=== PATIENT | male | born 1960 | race Caucasian/White ===

== ENCOUNTER → 2025-03-28 | Outpatient (CLI) | payer OTHER, SELFPAY ==
[2025-03-28 14:59] LABS: Bacteria 0 SEEN /hpf (None Seen); Mucous, Urine 0 SEEN /hpf (<or=2+); White Blood Cells 0 SEEN /hpf (0-5)
[2025-03-28 15:34] LABS: Absolute Lymphocyte Count 1.52 X10^3/uL (0.83-4.51); Absolute Neutrophil Count 1.5 X10^3/uL (2.0-7.7); Basophil# 0.01 X10^3/uL; Basophil% 0.3 % (0-1); Eosinophil# 0.08 X10^3/uL; Eosinophils% 2.5 % (0-5); Hematocrit 40.1 % (40-54); Hemoglobin 13.7 g/dL (13.0-16.5); Lymphocyte # 1.52 X10^3/ul (0.83-4.51); Lymphocyte % 46.6 % (19-41); Mean Corp Hgb Conc 34.2 g/dL (32-36); Mean Corpuscular Hgb 32.9 pg (27.0-32.0); Mean Corpuscular Volume 96.4 fL (80-94); Mean Platelet Vol. 9.9 fl (6.2-12.0); Monocyte# 0.11 X10^3/uL; Monocyte% 3.4 % (0-10); NRBC Flagged by Analyzer 0 % (0-5); Neutrophil # 1.53 X10^3/uL (2.7-7.7); Neutrophil % 46.9 % (47-70); Platelet Count 163 K/mm3 (150-450); RBC Distribution Width CV 13.9 % (11.6-14.6); RBC Distribution Width SD 49.5 fl (35.1-43.9); Red Blood Count 4.16 M/mm3 (4.6-6.2); White Blood Count 3.3 K/mm3 (4.4-11.0)
[2025-03-28 16:09] LABS: Cholesterol 227 mg/dL (<=200); High Density Lipoprotein 35 mg/dL; Low Density Lipoprotein Calc. 95 mg/dL; PSA,Total - Annual Screen 2.48 ng/mL (0.02-4.00); Triglycerides 485 mg/dL; Very Low Density Lipoprotein 97 mg/dL (5-40); cholesterol:hdl ratio screen 6.54
[2025-03-28 16:16] LABS: ALB/GLOB Ratio 1.3 RATIO (0.9-2.4); AST(SGOT) 27 U/L (<=37); Alanine Aminotransfer ALT/SGPT 26 U/L (<=46); Albumin, Serum 4.2 g/dL (3.4-4.8); Alkaline Phosphatase 96 U/L (40-129); Anion Gap 12 (5-15); BUN 15 mg/dL (4-19); BUN/Creat Ratio 19.4 RATIO (10-20); Calcium,Total 9.2 mg/dL (7.6-11.0); Carbon Dioxide 21.6 mmol/L (21.0-32.0); Chloride 105 mmol/L (98-108); Creatinine, Serum 0.79 mg/dL (0.70-1.20); EST Glomerular Filtration Rate 100 (>60); Globulin 3.1 g/dL (2.2-4.2); Glucose 98 mg/dL (70-99); Potassium 4.3 mmol/L (3.3-5.1); Protein, Total 7.3 g/dL (5.9-8.4); Sodium Level 138 mmol/L (133-145); Total Bilirubin 0.36 mg/dL (0.00-1.30)
[2025-03-28 16:36] LABS: Color, Urine Yellow (Yellow); Glucose, Dipstick Normal (Normal); Ketone-Dipstick Negative (Negative); Leukocyte Esterase-Dipstick Negative /ul (Negative); Nitrite-Dipstick Negative (Negative); Occult Blood-Urine 25 /ul (Negative); Protein-Dipstick Negative (Negative); Specific Gravity, Urine 1.015 (1.002-1.030); Urine Bilirubin Dipstick Negative (Negative); Urine Clarity Clear (Clear); Urine Urobilinogen Normal (Normal)
[2025-03-28 16:47] LABS: Red Blood Cells-Urine 0-5 SEEN /hpf (0-5); Squamous Epithelial Cells - UA 0-5 SEEN /hpf (0-5)
[2025-03-29 14:45] LABS: Vitamin B12 403 pg/mL (180-914)
== END | disposition home or self-care (01) ==
LOC: BIMLAB 14:04
PROVIDERS: PCP Internal Medicine; Referring Provider Internal Medicine; Visit Provider Internal Medicine
DX: Z00.00 Encounter for general adult medical examination without abnormal findings (principal); D75.89 Other specified diseases of blood and blood-forming organs; N40.0 Benign prostatic hyperplasia without lower urinary tract symptoms
CPT/HCPCS: 36415; 80053; 80061; 81001; 82607; 82746; 84153; 85025; G0103

== ENCOUNTER 2025-05-31 08:25 | Day surgery (SDC) | payer OTHER, SELFPAY ==
[2025-05-31] VITALS (9 sets, daily range): BP systolic 120–181; BP diastolic 79–109; PULSE 62–71; RESP 16; TEMP 36.3–37.1; O2SAT 94–98; BMI 29.7
[2025-05-31] MEDS: Lactated Ringers 1,000 ML 15 ML IV (08:57)
--- NOTE | 2025-05-31 09:01 | PCM.HP.STD ---
HPI - General General Date of Admission: 05/31/25 Date of Service: 05/31/25 Chief Complaint: Screening colonoscopy HPI Narrative VIRAL RICH, is a 65 M who presents for screening colonoscopy. He has had Cologuard test done in the past but never had a colonoscopy. [facility] Medical History Wears glasses Anxiety Alcohol use Arthritis Back pain Injury of back Injury of head and neck Non-smoker CPAP (continuous positive airway pressure) dependence Sleep apnea History of edema History of Holter monitoring Hyperlipidemia Macrocytosis Elevated blood pressure reading without diagnosis of hypertension Impacted cerumen, left ear Encounter to establish care BPH (benign prostatic hyperplasia) Colon cancer screening Preventative health care Dislocation of shoulder, right, open Pneumonia Hearing problem Bone fracture Home Medications ?Medication ?Instructions ?Recorded ?Last Taken ?Type cyanocobalamin-liver extract tablet 3 tab PO DAILY 03/28/25 05/27/25 History multivit,Ca,min-iron 8 mg-folic 1 tab PO DAILY 03/28/25 05/27/25 History acid 200 mcg-lycopene 600 mcg tablet (Men's Daily Multivitamin) glucosamine 500 eh-diyxpiphr-hnc 3 tab PO DAILY 05/28/25 05/27/25 History no1 416.6 mg-C 20 zr-ulgg-bkcl tablet pygeum africanum 50 mg capsule 50 mg PO DAILY 05/28/25 Unknown History Allergy/AdvReac Type Severity Reaction Status Date / Time No Known Allergies Allergy Verified 05/31/25 08:44 Family History Uncle Colon cancer Father Pulmonary fibrosis Mother Schizophrenia Surgical History Hx of skin graft History of surgery on lower extremity History of ear surgery Social History adopted: No household members: spouse Smoking Status: Never smoker details: occasional couple times per week substance use type: does not use what type of physical activity do you participate in: walking seatbelt use: always do you feel safe at home: Yes ROS Constitutional Constitutional: Denies fatigue, fever(s), poor appetite, weight gain or weight loss Gastrointestinal Gastrointestinal: Denies belching, bloating, change in bowel habits, change in stool character, chewing difficulty, coffee ground emesis, constipation, cramping, diarrhea, dyspepsia, dysphagia, early satiety, excessive flatus, fecal incontinence, heartburn, hematemesis, hematochezia, hemorrhoids, loose stools, melena, nausea, odynophagia, rectal bleeding, tenesmus, vomiting or weight changes Vital Signs Vital Signs Vital Signs: 05/31/25 08:45 05/31/25 08:45 Temperature 97.4 F L Temperature Source Temporal Pulse Rate 71 Respiratory Rate 16 Respiratory Pattern Normal Blood Pressure 168/109 H Blood Pressure Mean 128 Blood Pressure Source Monitor Blood Pressure Position Semi-Fowlers Blood Pressure Location Left Arm Pulse Ox 98 Oxygen Delivery Method Room Air Weight Weight: 219 lb 5.759 oz Body Mass Index (BMI) 29.7 Physical Exam Const alert, oriented x3, no apparent distress and healthy appearing General Appearance: cooperative GI normal to inspection, nondistended, normoactive bowel sounds, soft to palpation, non-tender and non-distended Percussion: normal to percussion Rectal Exam: deferred Assessment & Plan Assessment/Plan (1) Colon cancer screening: PLAN: He was explained alternatives, benefits, risk including not withstanding bleeding, infection, sepsis, perforation, need for surgery . He will have an ASA of 3.
--- NOTE | 2025-05-31 09:13 | PCM.PRE.AN2 ---
ASA Classification* ASA Classification ASA Classification: 3 Assessment & Plan Anesthesia* Anesthesia Assessment Anesthesia Assessment: Discussed sedation and/or anesthesia options, risks, benefits, and alternatives with patient/parents/legal guardian/POA. Questions invited. The patient/parents/legal guardian/POA seems to understand and agrees to proceed with anesthesia plan. Reviewed the physical assessment, medical history, allergy history and patient home medications list prior to surgery/procedure/anesthetic and documented any changes. Performed airway and anesthesia risk assessments. Anesthesia Type Anesthesia Type: MAC History Source History Obtained from:: Patient and Chart Anesthesia Focused Assessment* Temperature: 97.4 F Pulse Rate: 71 Blood Pressure: 168/109 (Repeat blood pressure is 166/101.) Respiratory Rate: 16 Pulse Ox: 98 Oxygen Delivery Method: Room Air Airway Assessment Mouth opens: >3 cm Mallampati Score: I Teeth Condition: Caps/Crowns (Patient has 1 crown. It is tight.) Neck Range of motion (ROM): Full ROM Labs Anesthesia Preop lab: CBC WBC 3.3 K/mm3 (4.4-11.0) L 03/28/25 14:04 03/28/25 RBC 4.16 M/mm3 (4.6-6.2) L 03/28/25 14:04 03/28/25 Hgb 13.7 g/dL (13.0-16.5) 03/28/25 14:04 03/28/25 Hct 40.1 % (40-54) 03/28/25 14:04 03/28/25 Plt Count 163 K/mm3 (150-450) 03/28/25 14:04 03/28/25 CHEMISTRY Potassium 4.3 mmol/L (3.3-5.1) 03/28/25 14:04 03/28/25 Sodium 138 mmol/L (133-145) 03/28/25 14:04 03/28/25 BUN 15 mg/dL (4-19) 03/28/25 14:04 03/28/25 Creatinine 0.79 mg/dL (0.70-1.20) 03/28/25 14:04 03/28/25 Glucose 98 mg/dL (70-99) 03/28/25 14:04 03/28/25 COAG Pre-Assessment Diagnosis/Proposed Procedure Planned Operative Procedure(s): COLONOSCOPY-OA Anesthesia History Anesthesia History - track superintendent: Anesthesia History - track superintendent Hx Hospitalization No 05/28/25 13:37 Any Problems With Anesthesia No 05/28/25 13:37 Cholinesterase deficiency No 05/28/25 13:37 You/Your Family Experience No 05/28/25 13:37 fever (hyperthermia) with Relationship Recent Exposure to Contagious No 05/31/25 08:45 Disease Does patient have nerve No 05/28/25 13:37 stimulator Patient instructed to have device shut off --Does patient have Pacemaker No 05/31/25 08:45 or ICD? When Was Last Pacemaker Check QUESTION #4 FULL TEXT: You/Your Family Experience fever (hyperthermia) with Anesthesia Last Oral Intake Last Oral intake: Last Oral Intake NPO since 06:30 05/31/25 08:45 Meds taken in AM with sips of No 05/31/25 08:45 water? Meds patient instructed to take am of surgery Any additional information?: Yes NPO since: 06:30 (Patient had some Gatorade and black coffee at 6:30 AM.) Meds taken in AM with sips of water?: No PONV PONV - track superintendent: PONV - track superintendent Female No 05/28/25 13:37 HX of Motion Sickness No 05/28/25 13:37 HX of N/V After Surgery No 05/28/25 13:37 Non-Smoker Yes 05/28/25 13:37 Duration of Surgery greater No 05/28/25 13:37 than 60 minutes Number of Risk Factors 1 05/28/25 13:37 PONV Score Low Risk 05/28/25 13:37 Height & Weight Height & Weight: Anesthesia: Height & Weight Height 6 ft 05/31/25 08:45 Weight: 99.5 kg 05/31/25 08:45 Body Mass Index (BMI) 29.7 05/31/25 08:45 Respiratory Assessment Respiratory Assessment - track superintendent: Respiratory Tract Infection Hx - track superintendent Hx Respiratory Tract Infection No 05/28/25 13:37 STOP Sleep Apnea STOP Sleep Apnea - track superintendent: STOP Sleep Apnea - track superintendent Hx Hypertension No 05/28/25 13:37 Hx Sleep Apnea Yes: NON-COMPLIANT 05/28/25 13:37 CPAP No 05/28/25 13:37 BIPAP No 05/28/25 13:37 Do you snore loudly (louder than talking or can be heard Do you often feel tired/ fatigued/ sleepy during daytime? Has anyone observed you stop breathing during sleep? STOP Results Positive 05/28/25 13:37 QUESTION #5 FULL TEXT : Do you snore loudly (louder than talking or can be heard through closed doors)? 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 Specify any problems Hx of Preganancy in last 3 N/A 05/28/25 13:37 Months Nurse Filling Out Transfusion VCHRISTIN 05/28/25 13:37 & Questions: Date: 05/28/25 05/28/25 13:37 Time: 13:39 05/28/25 13:37 Patient unable to answer at this time (ie. confused, unrespo /Reproduction History /Reproductive History - track superintendent: /Reproductive Hx- track superintendent Hx Now Gestational Age (in weeks): EDC: Hx Hx Para Hx Section SAB Active Medications Active Medications: Current Medications Generic Name Dose Route Start Last Admin Trade Name Freq PRN Reason Stop Dose Admin Lactated Ringer's 1,000 mls @ 15 mls/hr 05/31/25 08:45 05/31/25 08:57 IV 15 mls/hr .Q48H TYLER Administration PFSH Medical History Wears glasses Anxiety Alcohol use Arthritis Back pain Injury of back Injury of head and neck Non-smoker CPAP (continuous positive airway pressure) dependence Sleep apnea History of edema History of Holter monitoring Hyperlipidemia Macrocytosis Elevated blood pressure reading without diagnosis of hypertension Impacted cerumen, left ear Encounter to establish care BPH (benign prostatic hyperplasia) Colon cancer screening Preventative health care Dislocation of shoulder, right, open Pneumonia Hearing problem Bone fracture Home Medications ?Medication ?Instructions ?Recorded ?Last Taken ?Type cyanocobalamin-liver extract tablet 3 tab PO DAILY 03/28/25 05/27/25 History multivit,Ca,min-iron 8 mg-folic 1 tab PO DAILY 03/28/25 05/27/25 History acid 200 mcg-lycopene 600 mcg tablet (Men's Daily Multivitamin) glucosamine 500 qs-eftetaibn-zhf 3 tab PO DAILY 05/28/25 05/27/25 History no1 416.6 mg-C 20 vh-lsym-brrp tablet pygeum africanum 50 mg capsule 50 mg PO DAILY 05/28/25 Unknown History Allergy/AdvReac Type Severity Reaction Status Date / Time No Known Allergies Allergy Verified 05/31/25 08:44 Family History Uncle Colon cancer Father Pulmonary fibrosis Mother Schizophrenia Surgical History Hx of skin graft History of surgery on lower extremity History of ear surgery Social History adopted: No household members: spouse Smoking Status: Never smoker details: occasional couple times per week substance use type: does not use what type of physical activity do you participate in: walking seatbelt use: always do you feel safe at home: Yes Review of Systems (Anesthesia) ROS Narrative System reviewed and no additional complaints, except as documented.
--- NOTE | 2025-05-31 09:30 | COLBX_PTH ---
PATIENT: VIRAL RICH LOC: EN U#:[id number] AGE/SX: 65/M ROOM: RE05/31/[address]: Dr. Sukh Aguilar DO : 1960 BED: DIS: 05/31/2025 SPEC #: [id number] RECD: 05/31/25 10:50 STATUS: LOIS REChava #: [id number] JAZZMINE: 05/31/25 09:[address]: Sukh Aguilar DEPT: SURGICAL PATHOLOGY RECD BY: Andrew Jennings ENTERED: 05/31/25 13:09 SP TYPE: COLON BX CHIDI DR: Dr. Jacki Jade MD Tissues: A - COLON BIOPSY Procedures: Surgery Specimen Level IV HEADER OPERATION: Colonoscopy PRE-OP DIAGNOSIS: Colon cancer screening TISSUE SUBMITTED: A- Hepatic flexure polyp MICROSCOPIC DIAGNOSIS A. Hepatic flexure, polyp, biopsy: - Tubular adenoma. MICROSCOPIC DESCRIPTION Slides are reviewed. GROSS DESCRIPTION A. Received in fixative is one container labeled with the patient's name and designated Hepatic flexure polyp. The specimen consists of one irregular fragment of light baron soft tissue that measures 0.4 cm. The specimen is totally submitted in one cassette. IN 05/31/2025 CPT:30705
--- NOTE | 2025-05-31 10:13 | OP.COLON_ITS ---
Patient Name: Easton Cheema Procedure Date: 05/31/2025 9:41 AM Date of : 1960 Age: 65 Procedure: Colonoscopy Indications: Screening for colorectal malignant neoplasm Providers: Sukh Aguilar DO Medicines: Monitored Anesthesia Care Patient Profile: This is a 65 year old male. Refer to note in patient chart for documentation of history and physical. Last Colonoscopy: none. The patient's first colonoscopy is today. Complications: No immediate complications. Procedure: Pre-Anesthesia Assessment: - Prior to the procedure, a History and Physical was performed, and patient medications and allergies were reviewed. The patient is competent. The risks and benefits of the procedure and the sedation options and risks were discussed with the patient. All questions were answered and informed consent was obtained. Patient identification and proposed procedure were verified by the physician in the pre-procedure area. Mental Status Examination: alert and oriented. Airway Examination: normal oropharyngeal airway and neck mobility. Respiratory Examination: clear to auscultation. CV Examination: normal. Prophylactic Antibiotics: The patient does not require prophylactic antibiotics. Prior Anticoagulants: The patient has taken no anticoagulant or antiplatelet agents. ASA Grade Assessment: II - A patient with mild systemic disease. After reviewing the risks and benefits, the patient was deemed in satisfactory condition to undergo the procedure. The anesthesia plan was to use monitored anesthesia care (MAC). Immediately prior to administration of medications, the patient was re-assessed for adequacy to receive sedatives. The heart rate, respiratory rate, oxygen saturations, blood pressure, adequacy of pulmonary ventilation, and response to care were monitored throughout the procedure. The physical status of the patient was re-assessed after the procedure. After I obtained informed consent, the scope was passed under direct vision. Throughout the procedure, the patient's blood pressure, pulse, and oxygen saturations were monitored continuously. The colonoscope was introduced through the anus and advanced to the cecum, identified by appendiceal orifice and ileocecal valve. The colonoscopy was performed with ease. The patient tolerated the procedure well. The quality of the bowel preparation was adequate. The ileocecal valve, appendiceal orifice, and rectum were photographed. Scope In: 9:54:50 AM Scope Withdrawal Time 0 hours 9 minutes 17 seconds Scope Out: 10:06:22 AM Total Procedure Duration Time 0 hours 11 minutes 32 seconds Findings: The perianal and digital rectal examinations were normal. A 5 mm polyp was found in the hepatic flexure. The polyp was sessile. The polyp was removed with a jumbo cold forceps. Resection and retrieval were complete. Verification of patient identification for the specimen was done. Estimated blood loss was minimal. Multiple small-mouthed diverticula were found in the recto-sigmoid colon, sigmoid colon and descending colon. Impression: - One 5 mm polyp at the hepatic flexure, removed with a jumbo cold forceps. Resected and retrieved. - Diverticulosis in the recto-sigmoid colon, in the sigmoid colon and in the descending colon. Recommendation: - Discharge patient to home. - Resume previous diet. - Continue present medications. - Await pathology results. - Repeat colonoscopy in 5 years for surveillance. Procedure Code(s): --- Professional --- 84346, Colonoscopy, flexible; with biopsy, single or multiple CPT copyright 2021 [employer]. All rights reserved. The codes documented in this report are preliminary and upon professional development director review may be revised to meet current compliance requirements. Sukh Aguilar DO 05/31/2025 10:13:20 AM This report has been signed electronically. Number of Addenda: 0 Note Initiated On: 05/31/2025 9:41 AM
--- NOTE | 2025-05-31 10:14 | OP.PROVAT_ITS ---
05/31/2025 Jacki Jade MD [address] [place] [address] [place] [address] Re : Colonoscopy procedure for Easton Cheema Dear Dr. Jade This procedure was performed on Saturday, May 31, 2025. My impressions and recommendations are as follows: Impressions : - One 5 mm polyp at the hepatic flexure, removed with a jumbo cold forceps. Resected and retrieved. - Diverticulosis in the recto-sigmoid colon, in the sigmoid colon and in the descending colon. Recommendations : - Discharge patient to home. - Resume previous diet. - Continue present medications. - Await pathology results. - Repeat colonoscopy in 5 years for surveillance. My findings are described in the full procedure note, which is enclosed. If I can be of further assistance, please feel free to contact me at . Sincerely, Sukh Aguilar, 05/31/2025 10:13:20 AM This report has been signed electronically.
--- NOTE | 2025-05-31 10:14 | PCM.POST.ANE ---
Anesthesia: Postop Eval I Current Vital Signs Temperature: 97.9 F Pulse Rate: 71 Blood Pressure: 123/79 Respiratory Rate: 16 Pulse Ox: 94 Oxygen Delivery Method: Room Air Assessment Airway patent: Yes Spontaneous unlabored respirations: Yes Mental status: Asleep nausea: No Vomiting: No Anesthesia Complication: No Fluid Hydration Crystalloid volume administer (ml): 500 Total IV fluid infused: 500 Progress Note Anesthesia document: Postop Eval 1 completed: Yes
--- NOTE | 2025-05-31 10:52 | PCM.POSTANE2 ---
Anesthesia Postop Eval I Sum Postop Eval Completion status Anesthesia document: Postop Eval 1 completed: Yes Anesthesia Postop Eval I Summary Anesthesia Postop Eval I Summary: Anesthesia Postop Eval I: Assessment Summary Airway patent Yes 05/31/25 10:15 [email or web address] Spontaneous unlabored Yes 05/31/25 10:15 [email or web address] respirations Mental status Asleep 05/31/25 10:15 [email or web address] nausea No 05/31/25 10:15 [email or web address] Vomiting No 05/31/25 10:15 [email or web address] Anesthesia Postop Eval I: Fluid Summary Crystalloid volume administer 500 05/31/25 10:15 [email or web address] (ml) Colloids volume administered ( ml) Blood Product volume administered (ml) Total IV fluid infused 500 05/31/25 10:15 [email or web address] Anesthesia Postop Eval I: Summary Notes Anesthesia Complication No 05/31/25 10:15 [email or web address] Anesthesia Complication Comment: Post-operative progress note Anesthesia: Postop Eval II Evaluation Mental status: Awake Pain Level: 0 nausea: No Vomiting: No
== END 2025-05-31 10:48 | disposition home or self-care (01) ==
LOC: EN 08:27 → AC 08:28
PROVIDERS: PCP Internal Medicine; Referring Provider Internal Medicine; Visit Provider Internal Medicine Gastroenterology
PROC: 0DJD8ZZ Inspection of Lower Intestinal Tract, Via Natural or Artificial Opening Endoscopic (ICD-10-PCS; CPT 45378; principal; 2025-05-31 09:25)
DX: Z12.11 Encounter for screening for malignant neoplasm of colon (principal); D12.3 Benign neoplasm of transverse colon; K57.30 Diverticulosis of large intestine without perforation or abscess without bleeding
CPT/HCPCS: 45380; 88305; J2405

== ENCOUNTER → 2025-06-20 | Outpatient (CLI) | payer OTHER, SELFPAY ==
[2025-06-20 18:43] LABS: Cholesterol 202 mg/dL (<=200); Low Density Lipoprotein Calc. 119 mg/dL; Triglycerides 191 mg/dL; Very Low Density Lipoprotein 38 mg/dL (5-40); cholesterol:hdl ratio screen 4.54
== END | disposition home or self-care (01) ==
LOC: LAB 12:54
PROVIDERS: PCP Internal Medicine; Referring Provider Internal Medicine; Visit Provider Internal Medicine
DX: E78.5 Hyperlipidemia, unspecified (principal)
CPT/HCPCS: 36415; 80061

== ENCOUNTER → 2025-06-28 | Outpatient (CLI) | payer OTHER, SELFPAY ==
--- NOTE | 2025-06-28 12:33 | RAD_ITS ---
PROCEDURE: SHOULDER MIN 2 VIEWS 06/28/2025 REASON FOR EXAM: LEFT SHOULDER PAIN TECHNIQUE: Procedure Code: RADSH Modality: DX Procedure: SHOULDER MIN 2 VIEWS Laterality: Left COMPARISON: None. RAD/Shoulder min 2 Views IMPRESSION: Moderate left acromioclavicular joint degenerative changes are seen, with assoc iated significant joint narrowing. The left glenohumeral joint demonstrates minimal degenerative changes, without apparent joint narrowing. No acute fracture or dislocation is seen. Reading Location: [place] [address]
--- NOTE | 2025-06-28 12:33 | RAD_ITS ---
EXAM: XR Left Knee Complete, 4 or More Views CLINICAL INDICATION: LEFT KNEE PAIN TECHNIQUE: Four or more views of the left knee. COMPARISON: No relevant prior studies available. FINDINGS: BONES/JOINTS: Unremarkable. No acute fracture. No dislocation. SOFT TISSUES: Unremarkable. RAD/Knee 4 or More Views IMPRESSION: No acute fracture. Reading Location: [id number]
[2025-06-28 12:53] LABS: Hematocrit 41.6 % (40-54); Hemoglobin 14.0 g/dL (13.0-16.5); Immature Granulocytes Count 0.010 X10^3/uL (0.0-0.0); Mean Corp Hgb Conc 33.7 g/dL (32-36); Mean Corpuscular Volume 98.1 fL (80-94); Mean Platelet Vol. 9.4 fl (6.2-12.0); NRBC Flagged by Analyzer 0 % (0-5); Platelet Count 190 K/mm3 (150-450); RBC Distribution Width CV 13.6 % (11.6-14.6); RBC Distribution Width SD 49.1 fl (35.1-43.9); Red Blood Count 4.24 M/mm3 (4.6-6.2); White Blood Count 3.8 K/mm3 (4.4-11.0)
[2025-06-28 14:05] LABS: CRP < 3.00 mg/L (0.0-3.0)
[2025-07-02 15:07] LABS: ANTINUCLEAR ANTIBODIES DIRECT Negative (Negative)
== END | disposition home or self-care (01) ==
LOC: LAB 12:10
PROVIDERS: PCP Internal Medicine; Referring Provider Internal Medicine; Visit Provider Internal Medicine
DX: M19.90 Unspecified osteoarthritis, unspecified site (principal); M25.512 Pain in left shoulder; M25.562 Pain in left knee
CPT/HCPCS: 36415; 73030; 73564; 85025; 85652; 86038; 86140; 86225; 86431

== ENCOUNTER → 2025-07-05 | Outpatient (CLI) | payer OTHER, SELFPAY ==
[2025-07-05 12:03] LABS: Vitamin B12 478 pg/mL (180-914)
== END | disposition home or self-care (01) ==
LOC: LAB 10:22
PROVIDERS: PCP Internal Medicine; Referring Provider Internal Medicine; Visit Provider Internal Medicine
DX: D72.819 Decreased white blood cell count, unspecified (principal)
CPT/HCPCS: 36415; 82607